=== PATIENT | female | born 1990 | race Caucasian/White ===

== ENCOUNTER 2018-11-24 16:37 | Inpatient (IN) | payer OTHER ==
[~2018-11-24] VITALS: Ht 170.2 cm; Wt 124.5 kg
[~2018-11-24 16:37] MED LIST: IBUP-1222 PO; OXYC-302 PO
[2018-11-25] MEDS ORDERED: OXYTOCIN 30U/ 0.9% NaCL 500ML 500 ML IV ONE (06:28)
[2018-11-25] MEDS: LACTATED RINGERS 1,000 ML IV SCH ×3 (06:28→13:30)
[2018-11-25] MEDS ORDERED: D5%-LACTATED RINGERS 1,000 ML IV SCH (06:28)
[2018-11-25] MEDS ORDERED: OXYTOCIN 30U/ 0.9% NaCL 500ML 500 ML IV PRN (06:28)
[2018-11-25] MEDS ORDERED: SODIUM CHLORIDE FLUSH 10ML SYR IVF PRN (06:30)
[2018-11-25 06:32] VITALS: BP 119/66
[2018-11-25] MEDS ORDERED: LIDOCAINE 1%, 20ML ONE (06:39)
[2018-11-25] MEDS ORDERED: NEWBORN KIT ONE (06:39)
[2018-11-25] MEDS ORDERED: MISOPROSTOL 200 MCG TABLET ONE (06:39)
[2018-11-25] MEDS ORDERED: OXYTOCIN 30U/ 0.9% NaCL 500ML 500 ML ONE (06:40)
[2018-11-25] MEDS ORDERED: FENTANYL/BUPIV./NS/PF 250 ML EPIDCONT SCH (06:43)
[2018-11-25 06:48] LABS: BASOPHILS # (AUTO) 0.05 x10^3/uL (0-0.1); BASOPHILS % (AUTO) 1 % (0-1); EOSINOPHILS # (AUTO) 0.07 x10^3/uL (0-0.4); EOSINOPHILS % (AUTO) 1 % (1-7); LYMPHOCYTES # (AUTO) 1.87 x10^3/uL (1-3.4); LYMPHOCYTES % (AUTO) 24 % (22-44); MD NO; MEAN CORPUSCULAR HEMOGLOBIN 26.1 pg (27.0-34.8); MEAN CORPUSCULAR HGB CONC 33.5 g/dL (32.4-35.8); MEAN PLATELET VOLUME 7.8 fL (7.4-10.4); MONOCYTES % (AUTO) 9 % (2-9); NEUTROPHILS # (AUTO) 4.95 x10^3/uL (1.8-6.8); NEUTROPHILS % (AUTO) 65 % (42-75); PLATELET COUNT 315 x10^3/uL (130-400); RED BLOOD COUNT 3.69 x10^6/uL (3.82-5.3); RED CELL DISTRIBUTION WIDTH 16.1 % (9.6-15.2)
[2018-11-25] MEDS ORDERED: FENTANYL PF 500 MCG, BUPIVACAINE/PF 0.5%, 30ML 62.5 ML in SODIUM CHLORIDE 0.9% 177.5 ML EPIDCONT SCH (07:00)
[2018-11-25] MEDS ORDERED: BUPIVACAINE 0.25% ONE (07:28)
[2018-11-25] MEDS ORDERED: MISOPROSTOL 200 MCG TABLET PR PRN (17:00)
[2018-11-25] MEDS: FERROUS GLUCONATE 324 MG TABLET PO SCH (17:00)
[2018-11-25] MEDS ORDERED: OXYcodone/APAP 5/325MG TABLET PO PRN ×2 (17:00)
[2018-11-25] MEDS ORDERED: ONDANSETRON 2MG/ML, 2ML IV PRN (17:00)
[2018-11-25] MEDS ORDERED: IBUPROFEN 600 MG TABLET ONE (17:10)
[2018-11-25] MEDS: IBUPROFEN 600 MG TABLET PO PRN ×2 (17:14→23:31)
[2018-11-25] MEDS: OXYTOCIN 30U/ 0.9% NaCL 500ML 500 ML IV SCH (17:35)
[2018-11-25] MEDS ORDERED: ONDANSETRON 2MG/ML, 2ML ONE (17:37)
[2018-11-25 20:30] VITALS: BP 131/79
[2018-11-25 23:30] VITALS: BP 116/79
[2018-11-25] MEDS: DOCUSATE 100 MG CAPSULE PO PRN (23:31)
[2018-11-26] MEDS: OXYTOCIN 30U/ 0.9% NaCL 500ML 500 ML IV SCH ×3 (02:51→22:51)
[2018-11-26 04:30] VITALS: BP 114/69
[2018-11-26 06:03] LABS: BASOPHILS # (AUTO) 0.03 x10^3/uL (0-0.1); BASOPHILS % (AUTO) 0 % (0-1); EOSINOPHILS # (AUTO) 0.14 x10^3/uL (0-0.4); EOSINOPHILS % (AUTO) 1 % (1-7); LYMPHOCYTES # (AUTO) 2.27 x10^3/uL (1-3.4); LYMPHOCYTES % (AUTO) 22 % (22-44); MD NO; MEAN CORPUSCULAR HGB CONC 33.2 g/dL (32.4-35.8); MEAN CORPUSCULAR VOLUME 78.3 fL (80-100); MEAN PLATELET VOLUME 7.9 fL (7.4-10.4); MONOCYTES # (AUTO) 0.94 x10^3/uL (0.2-0.8); MONOCYTES % (AUTO) 9 % (2-9); NEUTROPHILS # (AUTO) 7.12 x10^3/uL (1.8-6.8); NEUTROPHILS % (AUTO) 68 % (42-75); PLATELET COUNT 266 x10^3/uL (130-400); RED BLOOD COUNT 3.49 x10^6/uL (3.82-5.3)
[2018-11-26] MEDS: IBUPROFEN 600 MG TABLET PO PRN ×3 (06:28→20:54)
[2018-11-26] MEDS: FERROUS GLUCONATE 324 MG TABLET PO SCH ×2 (07:29→16:38)
[2018-11-26 07:30] VITALS: BP 103/67
[2018-11-26] MEDS: DOCUSATE 100 MG CAPSULE PO PRN ×2 (07:30→16:38)
[2018-11-26] MEDS: PRENATAL VIT/IRON/FA 1 EACH TABLET PO SCH (07:49)
[2018-11-26 12:08] VITALS: BP 123/84
[2018-11-26 19:15] VITALS: BP 127/76
[2018-11-27] MEDS: IBUPROFEN 600 MG TABLET PO PRN ×2 (02:50→09:02)
[2018-11-27] MEDS: OXYTOCIN 30U/ 0.9% NaCL 500ML 500 ML IV SCH (08:51)
[2018-11-27 09:00] VITALS: BP 129/77
[2018-11-27] MEDS: PRENATAL VIT/IRON/FA 1 EACH TABLET PO SCH (09:02)
[2018-11-27] MEDS: DOCUSATE 100 MG CAPSULE PO PRN (09:02)
[2018-11-27] MEDS: FERROUS GLUCONATE 324 MG TABLET PO SCH (09:02)
== END 2018-11-27 14:45 | disposition home or self-care (01) | DRG 807 ==
LOC: LDIP 11-25 06:05 → 2NW 11-25 19:18
PROVIDERS: ADMIT Obstetrics & Gynecology; ATTEND Obstetrics & Gynecology
PROC: 10907ZC Drainage of Amniotic Fluid, Therapeutic from Products of Conception, Via Natural or Artificial Opening (ICD-10-PCS; principal; 2018-11-25)
PROC: 10E0XZZ Delivery of Products of Conception, External Approach (ICD-10-PCS; 2018-11-25)
PROC: 0UQMXZZ Repair Vulva, External Approach (ICD-10-PCS; 2018-11-25)
PROC: 3E0R3BZ Introduction of Anesthetic Agent into Spinal Canal, Percutaneous Approach (ICD-10-PCS; 2018-11-25)
PROC: 00HU33Z Insertion of Infusion Device into Spinal Canal, Percutaneous Approach (ICD-10-PCS; 2018-11-25)
DX: O48.0 Post-term pregnancy (principal); Z37.0 Single live birth; O69.81X0 Labor and delivery complicated by cord around neck, without compression, not applicable or unspecified; O70.0 First degree perineal laceration during delivery; Z3A.40 40 weeks gestation of pregnancy
CPT/HCPCS: 36415; 85025; 86850; 86900; G0378; J2405; J2590; J7120

== ENCOUNTER → 2019-01-11 | Outpatient (CLI) | payer OTHER ==
[~2019-01-11] MED LIST changes: +FLUO20CA19 PO
[2019-01-11 10:41] LABS: MICROSCOPIC NOT IND
[2019-01-11 10:47] LABS: BASOPHILS # (AUTO) 0.03 x10^3/uL (0-0.1); BASOPHILS % (AUTO) 1 % (0-1); EOSINOPHILS # (AUTO) 0.12 x10^3/uL (0-0.4); EOSINOPHILS % (AUTO) 2 % (1-7); LYMPHOCYTES # (AUTO) 2.12 x10^3/uL (1-3.4); LYMPHOCYTES % (AUTO) 34 % (22-44); MD NO; MEAN CORPUSCULAR HEMOGLOBIN 25.5 pg (27.0-34.8); MEAN CORPUSCULAR HGB CONC 32.1 g/dL (32.4-35.8); MEAN CORPUSCULAR VOLUME 79.4 fL (80-100); MEAN PLATELET VOLUME 7.7 fL (7.4-10.4); MONOCYTES # (AUTO) 0.38 x10^3/uL (0.2-0.8); MONOCYTES % (AUTO) 6 % (2-9); NEUTROPHILS # (AUTO) 3.67 x10^3/uL (1.8-6.8); NEUTROPHILS % (AUTO) 58 % (42-75); PLATELET COUNT 385 x10^3/uL (130-400); RED BLOOD COUNT 4.95 x10^6/uL (3.82-5.3)
[2019-01-11 10:51] LABS: CULTURE INDICATED? NO
[2019-01-11 10:52] LABS: ALANINE AMINOTRANSFERASE 16 U/L (12-78); ALBUMIN 3.5 g/dL (3.4-5.0); ANION GAP 6 mmol/L (5-15); CALCIUM 8.6 mg/dL (8.5-10.1); CHLORIDE 107 mmol/L (98-107); CREATININE 0.73 mg/dL (0.55-1.02)
[2019-01-11 10:56] LABS: ALKALINE PHOSPHATASE 86 U/L (45-117); BILIRUBIN,TOTAL 0.3 mg/dL (0.2-1.0); TOTAL PROTEIN 7.5 g/dL (6.4-8.2)
== END | disposition home or self-care (01) ==
LOC: STAR 09:49
PROVIDERS: ATTEND Obstetrics & Gynecology
DX: Z01.818 Encounter for other preprocedural examination (principal)
CPT/HCPCS: 36415; 80053; 81003; 84702; 85025

== ENCOUNTER 2019-01-17 05:36 | Day surgery (SDC) | payer OTHER ==
[~2019-01-17] VITALS: Ht 167.6 cm; Wt 115.8 kg
[2019-01-17] MEDS ORDERED: LACTATED RINGERS 1,000 ML IV SCH (06:16)
[2019-01-17 06:21] LABS: HCG UR SG 1.018 (1.003-1.030)
[2019-01-17 06:34] VITALS: BP 112/77
[2019-01-17] MEDS ORDERED: EPINEPHRINE 1 MG/ML, 1ML ONE (06:50)
[2019-01-17] MEDS ORDERED: BUPIVACAINE/PF 0.25% ONE (06:50)
[2019-01-17] MEDS ORDERED: SILVER NITRATE STICK TP ONE (06:50)
[2019-01-17] MEDS ORDERED: CEFAZOLIN 1,000 MG ONE (07:30)
[2019-01-17] MEDS ORDERED: ONDANSETRON 2MG/ML, 2ML ONE ×2 (07:30→09:07)
[2019-01-17] MEDS ORDERED: DEXAMETHASONE 4 MG/ML, 1ML ONE (07:30)
[2019-01-17] MEDS ORDERED: PROPOFOL 10 MG/ML, 20ML ONE (07:30)
[2019-01-17] MEDS ORDERED: METOCLOPRAMIDE 5 MG/ML, 2ML ONE (07:30)
[2019-01-17] MEDS ORDERED: SUCCINYLCHOLINE 20 MG/ML, 10ML ONE (07:30)
[2019-01-17] MEDS ORDERED: ONDANSETRON 2MG/ML, 2ML IVPush PRN (08:30)
[2019-01-17] MEDS ORDERED: MEPERIDINE/PF 25MG/0.5ML IVPush PRN (08:30)
[2019-01-17] MEDS ORDERED: OXYcodone 5 MG/5 ML ORAL.SOL UDC PO PRN (08:30)
[2019-01-17] MEDS ORDERED: MIDAZOLAM 1 MG/ML, 2ML IV PRN (08:30)
[2019-01-17] MEDS ORDERED: LABETALOL 5MG/ML, 20ML IV PRN (08:30)
[2019-01-17] MEDS ORDERED: HYDROmorphone 1 MG/ML, 1ML IV PRN (08:30)
[2019-01-17] MEDS ORDERED: OXYcodone 5 MG/5 ML ORAL.SOL UDC ONE (09:07)
[2019-01-17] MEDS ORDERED: FENTANYL PF 100 MCG/2ML ONE (09:07)
[2019-01-17] MEDS: FENTANYL PF 100 MCG/2ML IV PRN ×2 (09:13→09:25)
[2019-01-17] MEDS ORDERED: KETOROLAC 30 MG/1 ML ONE (09:20)
[2019-01-17] MEDS ORDERED: KETOROLAC 30 MG/1 ML IVPush ONE (09:30)
== END 2019-01-17 11:40 | disposition home or self-care (01) ==
LOC: OUT 05:36
PROVIDERS: ATTEND Obstetrics & Gynecology
DX: Z30.2 Encounter for sterilization (principal); J45.909 Unspecified asthma, uncomplicated; Z98.890 Other specified postprocedural states
CPT/HCPCS: 36415; 58670; 81025; 86850; 86900; 88302; J0171; J0330; J0690; J1100; J1885; J2250; J2405; J2704; J2765; J3010; J3490; J7120